=== PATIENT | male | born 1955 | race Caucasian/White ===

== ENCOUNTER → 2018-10-11 | Outpatient (CLI) | payer MEDICARE ==
[~2018-10-11] MED LIST: AMLODIPINE; IOPAMIDOL 370 MG/ML 200 ML INFUS..BTL INJ ONE; IRON; LEXAPRO; LIPITOR; METFORMIN; OMEPRAZOLE; SODIUM CHLORIDE 0.9% 100 ML 100 ML ONE
[2018-10-11 13:10] LABS: CREATININE, SERUM 1.21 mg/dL (0.72-1.25)
--- NOTE | 2018-10-11 14:30 | Diagnostic Imaging Report ---
EXAMINATION: CT scan of the chest with contrast, CT angiography protocol. TECHNIQUE: Spiral CT images of the chest were performed from the lung apices to the level of the adrenal glands after the intravenous administration of 100 cc Isovue-[id number]. Coronal and sagittal reformatted images were obtained. For optimization of anatomic definition, volume rendered 3-D reconstruction images were generated on a stand-alone workstation under the direct interpreting physician. COMPARISON: None. CLINICAL HISTORY:Aortic aneurysm DISCUSSION: Vasculature: [employer] measurements of the thoracic aorta as follows: Annulus: 2.6 cm Sinuses of Valsalva: 4.2 cm Proximal ascending thoracic aorta: 4.8 cm (series 401 image 54) Mid ascending thoracic aorta: 5.3 cm Distal ascending thoracic aorta: 4.2 cm (series 3 image 54) Proximal aortic arch: 2.6 cm Mid ascending arch: 2.7 cm Isthmus: 2.5 cm Proximal descending aorta: 3.1 cm Mid descending thoracic aorta: 2.3 cm Distal descending thoracic aorta at diaphragmatic hiatus: 2.3 cm Aortic valvular calcifications. Mild calcifications at the innominate and left common carotid arterial origins from the aortic arch. Main pulmonary artery and right and left pulmonary arteries are patent without filling defect. LUNGS AND AIRWAYS: Minimal linear reticular and groundglass opacities in the dependent portions of the lower lobes compatible with subsegmental atelectasis. No airspace consolidation, bronchiectasis, mass lesion, or gross fibrotic change. 5 mm solid nodule in the right lung base (series 5 image 55). Trachea, mainstem bronchi, and central lobar and segmental bronchi are patent. PLEURA: No pneumothorax or pleural effusions. HEART AND MEDIASTINUM: Visualized portions of the thyroid gland appear normal. No pericardial effusion. No axillary, hilar, or mediastinal lymphadenopathy. LYMPH NODES: There is no mediastinal, hilar or axillary lymphadenopathy. ABDOMEN: Visualized portions of the liver, pancreas, and adrenal glands are unremarkable. Heterogeneity of splenic attenuation reflects arterial phase of scan BONES AND SOFT TISSUES: No focal soft tissue abnormalities. No osseous destructive lesions. Mild degenerative disc changes of the partially visualized cervical and thoracic spine. IMPRESSION: Ascending thoracic aortic aneurysm, maximum diameter 5.3 cm at the mid ascending segment as detailed above. No acute aortic pathology. 5 mm solid nodule in the right lung base should be followed on subsequent cross-sectional imaging examinations of the chest. If interval CT angiography is not planned, a follow-up CT scan of the chest without contrast is suggested in one year to assess for stability. Signed by: Dr. Juice Maxwell M.D. on 10/11/2018 2:26 PM
== END ==
LOC: CT 12:04
PROVIDERS: ATTEND Internal Medicine Cardiovascular Disease
DX: I71.9 Aortic aneurysm of unspecified site, without rupture (principal)
CPT/HCPCS: 36415; 71275; 82565; 84520; Q9967

== ENCOUNTER → 2021-01-09 | Outpatient (CLI) | payer MEDICARE ==
[~2021-01-09] MED LIST changes: -SODIUM CHLORIDE 0.9% 100 ML 100 ML ONE; +SODIUM CHLORIDE 0.9% 100 ML ONE
== END ==
LOC: CT 11:22
PROVIDERS: ATTEND Internal Medicine Cardiovascular Disease
DX: I71.9 Aortic aneurysm of unspecified site, without rupture (principal)
CPT/HCPCS: 71275; J7050; Q9967

== ENCOUNTER → 2021-04-21 | Outpatient (CLI) | payer MEDICARE ==
[~2021-04-21] MED LIST changes: -IOPAMIDOL 370 MG/ML 200 ML INFUS..BTL INJ ONE; -SODIUM CHLORIDE 0.9% 100 ML ONE
== END ==
LOC: MRI 08:41
PROVIDERS: ATTEND Family Medicine
DX: M54.41 Lumbago with sciatica, right side (principal)
CPT/HCPCS: 72148

== ENCOUNTER → 2021-12-23 | Outpatient (CLI) | payer MEDICARE | LOC: MRI 10:02 | PROVIDERS: ATTEND Family Medicine | DX: S76.012D Strain of muscle, fascia and tendon of left hip, subsequent encounter (principal); M25.552 Pain in left hip ==

== ENCOUNTER → 2022-03-23 | Outpatient (CLI) | payer MEDICARE ==
[~2022-03-23] MED LIST changes: +IOPAMIDOL 370 MG/ML 100 ML INFUS..BTL INJ ONE; +SODIUM CHLORIDE 0.9% 100 ML ONE
[2022-03-23 14:09] LABS: CREATININE, SERUM 1.59 mg/dL (0.72-1.25)
== END ==
LOC: CT 12:52
PROVIDERS: ATTEND Internal Medicine Cardiovascular Disease
DX: R07.9 Chest pain, unspecified (principal); I71.2 Thoracic aortic aneurysm, without rupture
CPT/HCPCS: 36415; 71275; 82565; 84520; J7050; Q9967